=== PATIENT | male | born 1945 | race Caucasian/White ===

== ENCOUNTER 2018-07-18 10:05 | Emergency (ER) | payer MEDICARE ==
[~2018-07-18] VITALS: Ht 170.2 cm; Wt 68.0 kg
--- OUTSIDE RECORDS SUMMARY | 2018-07-18 10:07 | XMS REPORT | Clinical Summary ---
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 Sexual dysfunction 10/09/2017 History of prostate cancer 10/09/2017 Encounters Care Team Description Date Type Specialty Cesar Doyle DO Male hypogonadism (Primary Dx); Sexual dysfunction; History of prostate cancer 10/09/2017 Office Visit Family Medicine after 07/17/2017 Family History Medical History Relation Name Comments Diabetes Brother Prostate cancer Brother Alcohol abuse Father Prostate cancer Father Dementia Mother Pneumonia Mother Breast cancer Sister Cancer Sister Relation Name Status Comments Brother Alive Father (Age 81) Mother (Age 92) Sister Alive Social History Date Tobacco Use Types Packs/Day Years Used Never Smoker Smokeless Tobacco: Never Used Alcohol Use Drinks/Week oz/Week Comments No Sex Assigned at Date Recorded Not on file Industry Job Start Date Occupation Not on file Not on file Not on file Travel End Travel History Travel Start No recent travel history available. Last Filed Vital Signs Time Taken Vital Sign Reading 10/09/2017 8:26 AM CDT Blood Pressure 149/80 10/09/2017 8:26 AM CDT Pulse 58 10/09/2017 8:26 AM CDT Temperature 36.7 C (98 F) - Respiratory Rate - 10/09/2017 8:26 AM CDT Oxygen Saturation 99% - Inhaled Oxygen - Concentration 10/09/2017 8:26 AM CDT Weight 70.3 kg (155 lb) 10/09/2017 8:26 AM CDT Height 168.9 cm (5' 6.5") 10/09/2017 8:26 AM CDT Body Mass Index 24.64 Plan of Treatment Health Maintenance Due Date Last Done Comments COLON CANCER SCREENING 02/08/1994 SHINGLES VACCINES (1 of 02/08/1994 2) PNEUMOCOCCAL 02/08/2009 POLYSACCHARIDE VACCINE AGE 65 AND OVER PNEUMOCOCCAL-13 02/08/2009 INFLUENZA VACCINE 01/08/2018 Results Not on fileafter 07/17/2017 Insurance Payer Benefit Subscriber ID Type Phone Address Plan / Group [employer] xxxxxxxxx O [facility] Advance Directives Patient has advance care planning documents on file. For more information, luis fernando ruffin contact: [address] [place] [address]
[2018-07-18 10:52] VITALS: BP 149/88
== END 2018-07-18 10:59 | disposition home or self-care (01) ==
LOC: ER 10:05
DX: R10.13 Epigastric pain (principal); K29.00 Acute gastritis without bleeding; E78.5 Hyperlipidemia, unspecified
CPT/HCPCS: 99282

== ENCOUNTER 2025-02-05 15:16 | Emergency (ER) | payer MEDICARE ==
[~2025-02-05] VITALS: Ht 170.2 cm; Wt 68.0 kg
[2025-02-05 16:34] VITALS: PULSE 69; RESP 18; O2SAT 98
== END 2025-02-05 18:02 | disposition home or self-care (01) ==
LOC: ER 18:02
DX: Z46.6 Encounter for fitting and adjustment of urinary device (principal); C61 Malignant neoplasm of prostate; E78.5 Hyperlipidemia, unspecified; Z96.659 Presence of unspecified artificial knee joint
CPT/HCPCS: 99282